=== PATIENT | female | born 1965 | race Caucasian/White ===

== ENCOUNTER 2017-03-31 16:03 | Emergency (ER) | payer OTHER ==
[~2017-03-31] VITALS: Ht 162.6 cm; Wt 100.8 kg
[~2017-03-31 16:03] MED LIST: CALC-451 PO; DEXA4TAB PO; HYDR-3240 PO; IRON1TAB60 PO; MULT-6 PO
[2017-03-31] MEDS ORDERED: SODIUM CHLORIDE 0.9% 1,000 ML IV ONE (16:23)
[2017-03-31] MEDS ORDERED: SODIUM CHLORIDE 0.9% 1,000ML IVBOLUS ONE (16:30)
[2017-03-31] MEDS ORDERED: ONDANSETRON 2MG/ML, 2ML IVPush ONE (16:30)
[2017-03-31] MEDS ORDERED: SODIUM CHLORIDE FLUSH 10ML SYR IVF ONE (16:30)
[2017-03-31] MEDS ORDERED: DIPHENHYDRAMINE 50 MG/ML, 1ML IVPush ONE (16:30)
[2017-03-31 16:49] LABS: HEMATOCRIT 39.6 % (34.6-47.8); HEMOGLOBIN 13.3 g/dL (11.7-16.4); WHITE BLOOD COUNT 13.6 x10^3/uL (3.4-10)
[2017-03-31] MEDS ORDERED: DIPHENHYDRAMINE 50 MG/ML, 1ML ONE (16:59)
[2017-03-31] MEDS ORDERED: ONDANSETRON 2MG/ML, 2ML ONE (16:59)
[2017-03-31 17:01] LABS: BLOOD UREA NITROGEN 14 mg/dL (7-18)
[2017-03-31 17:11] LABS: ASPARTATE AMINO TRANSFERASE 21 U/L (15-37)
[2017-03-31] MEDS ORDERED: PROCHLORPERAZINE 5 MG/ML, 2ML IVPush ONE (17:30)
[2017-03-31] MEDS ORDERED: PROCHLORPERAZINE 5 MG/ML, 2ML ONE (17:48)
[2017-03-31 19:02] VITALS: BP 135/73
== END 2017-03-31 19:04 | disposition home or self-care (01) ==
LOC: ED 18:37
DX: G44.1 Vascular headache, not elsewhere classified (principal)
CPT/HCPCS: 36415; 70450; 71010; 80053; 83605; 85025; 85610; 85730; 87040; 96361; 96374; 96375; 99285; J0780; J1200; J2405; J7030

== ENCOUNTER 2017-08-18 09:51 | Day surgery (SDC) | payer OTHER ==
[~2017-08-18] VITALS: Ht 162.6 cm; Wt 110.0 kg
[2017-08-18] MEDS ORDERED: CYCL-259 PO (10:19)
[2017-08-18] MEDS ORDERED: HYDR-3240 PO ×2 (10:19)
[2017-08-18] MEDS ORDERED: AMLO1TAB92 PO (10:19)
[2017-08-18] MEDS ORDERED: TRAM50TA2 PO (10:19)
[2017-08-18] MEDS ORDERED: PRED20TA PO (10:19)
[2017-08-18 10:50] LABS: BASOPHILS # (AUTO) 0.05 x10^3/uL (0-0.1); BASOPHILS % (AUTO) 1 % (0-1); EOSINOPHILS # (AUTO) 0.03 x10^3/uL (0-0.4); EOSINOPHILS % (AUTO) 1 % (1-7); LYMPHOCYTES # (AUTO) 0.94 x10^3/uL (1-3.4); LYMPHOCYTES % (AUTO) 13 % (22-44); MD NO; MEAN CORPUSCULAR HEMOGLOBIN 29.9 pg (27.0-34.8); MEAN CORPUSCULAR HGB CONC 33.6 g/dL (32.4-35.8); MEAN CORPUSCULAR VOLUME 88.8 fL (80-100); MEAN PLATELET VOLUME 8.8 fL (7.4-10.4); MONOCYTES % (AUTO) 6 % (2-9); NEUTROPHILS # (AUTO) 5.76 x10^3/uL (1.8-6.8); NEUTROPHILS % (AUTO) 80 % (42-75); PLATELET COUNT 269 x10^3/uL (130-400); RED BLOOD COUNT 4.15 x10^6/uL (3.82-5.3); RED CELL DISTRIBUTION WIDTH 14.7 % (9.6-15.2)
[2017-08-18 11:01] LABS: ANION GAP 7 mmol/L (5-15); CALCIUM 8.7 mg/dL (8.5-10.1); CHLORIDE 111 mmol/L (98-107); CREATININE 0.88 mg/dL (0.55-1.02)
[2017-08-18] MEDS ORDERED: LIDOCAINE 2%, 2ML ONE (11:45)
[2017-08-18] MEDS ORDERED: NITROGLYCERIN 5 MG/ML, 10ML ONE (11:45)
[2017-08-18] MEDS ORDERED: DIPHENHYDRAMINE 50 MG/ML, 1ML ONE (11:45)
[2017-08-18] MEDS ORDERED: VERAPAMIL 2.5 MG/ML, 2ML ONE (11:45)
[2017-08-18] MEDS ORDERED: FENTANYL PF 100 MCG/2ML ONE (11:45)
[2017-08-18] MEDS ORDERED: MIDAZOLAM 1 MG/ML, 2ML ONE ×3 (11:45→12:21)
[2017-08-18] MEDS ORDERED: HEPARIN 1,000 UNITS/ML, 10ML ONE (11:46)
== END 2017-08-18 14:39 ==
LOC: CACL 09:51
PROVIDERS: ATTEND Internal Medicine Cardiovascular Disease
DX: I71.2 Thoracic aortic aneurysm, without rupture (principal); I10 Essential (primary) hypertension
CPT/HCPCS: 36415; 80048; 85025; 93458; 93567; 99156; C1769; C1894; J1200; J1644; J2250; J3010; J3490; Q9967

== ENCOUNTER → 2017-09-12 | Outpatient (CLI) | payer OTHER ==
[~2017-09-12] MED LIST changes: +AMLO1TAB92 PO; +CYCL-259 PO; +PRED20TA PO; +TRAM50TA2 PO
== END | disposition home or self-care (01) ==
LOC: CFH 07:37
PROVIDERS: ATTEND Psychiatry & Neurology Neurology
DX: D25.9 Leiomyoma of uterus, unspecified (principal); K40.90 Unilateral inguinal hernia, without obstruction or gangrene, not specified as recurrent; M51.36 Other intervertebral disc degeneration, lumbar region
CPT/HCPCS: 72195

== ENCOUNTER → 2018-03-03 | Outpatient (CLI) | payer OTHER ==
[~2018-03-03] MED LIST changes: +AMLO1CAP12 PO
[2018-03-03 10:30] LABS: BASOPHILS # (AUTO) 0.03 x10^3/uL (0-0.1); BASOPHILS % (AUTO) 0 % (0-1); EOSINOPHILS # (AUTO) 0.03 x10^3/uL (0-0.4); EOSINOPHILS % (AUTO) 0 % (1-7); LYMPHOCYTES # (AUTO) 0.97 x10^3/uL (1-3.4); LYMPHOCYTES % (AUTO) 13 % (22-44); MD NO; MEAN CORPUSCULAR HEMOGLOBIN 25.3 pg (27.0-34.8); MEAN CORPUSCULAR HGB CONC 31.7 g/dL (32.4-35.8); MEAN CORPUSCULAR VOLUME 79.9 fL (80-100); MEAN PLATELET VOLUME 8.5 fL (7.4-10.4); MONOCYTES # (AUTO) 0.45 x10^3/uL (0.2-0.8); MONOCYTES % (AUTO) 6 % (2-9); NEUTROPHILS # (AUTO) 6.05 x10^3/uL (1.8-6.8); NEUTROPHILS % (AUTO) 80 % (42-75); PLATELET COUNT 330 x10^3/uL (130-400); RED BLOOD COUNT 4.42 x10^6/uL (3.82-5.3)
[2018-03-03 10:36] LABS: INTERNATIONAL NORMALIZED RATIO 0.97 (0.93-1.1)
[2018-03-03 10:37] LABS: ALANINE AMINOTRANSFERASE 33 U/L (12-78); ALBUMIN 3.7 g/dL (3.4-5.0); ANION GAP 4 mmol/L (5-15); CALCIUM 8.8 mg/dL (8.5-10.1); CHLORIDE 112 mmol/L (98-107); CREATININE 0.94 mg/dL (0.55-1.02)
[2018-03-03 10:40] LABS: ALKALINE PHOSPHATASE 96 U/L (45-117); BILIRUBIN,TOTAL 0.3 mg/dL (0.2-1.0)
== END | disposition home or self-care (01) ==
LOC: STAR 09:36
PROVIDERS: ATTEND Specialist
DX: Z01.818 Encounter for other preprocedural examination (principal); N85.00 Endometrial hyperplasia, unspecified; R19.07 Generalized intra-abdominal and pelvic swelling, mass and lump
CPT/HCPCS: 36415; 71046; 80053; 85025; 85610; 85730; 93005

== ENCOUNTER 2018-03-09 08:45 | Day surgery (SDC) | payer OTHER ==
[~2018-03-09] VITALS: Ht 162.6 cm; Wt 96.1 kg
[~2018-03-09 08:45] MED LIST changes: +BUPIVACAINE/PF-EPI 0.25% 1:200K ONE; +INDOCYANINE GREEN 25 MG VIAL ONE
[2018-03-09] MEDS ORDERED: MIDAZOLAM 1 MG/ML, 2ML IV PRN (09:00)
[2018-03-09] MEDS ORDERED: OXYcodone 5 MG/5 ML ORAL.SOL UDC PO PRN (09:00)
[2018-03-09] MEDS ORDERED: PROCHLORPERAZINE 5 MG/ML, 2ML IV PRN (09:00)
[2018-03-09] MEDS ORDERED: EPHEDRINE 50 MG/ML, 1ML IVPush PRN (09:00)
[2018-03-09] MEDS ORDERED: LORazepam 2 MG/ML, 1ML IVPush PRN (09:00)
[2018-03-09] MEDS ORDERED: hydrALAzine 20 MG/ML, 1ML IV PRN (09:00)
[2018-03-09] MEDS ORDERED: SCOPOLAMINE PATCH, 1.5MG PATCH.TD72 TD PRN (09:00)
[2018-03-09] MEDS ORDERED: LABETALOL 5MG/ML, 20ML IV PRN (09:00)
[2018-03-09] MEDS ORDERED: ALBUTEROL SULFATE 2.5 MG/3 ML NPPB PRN (09:00)
[2018-03-09] MEDS ORDERED: MEPERIDINE/PF 25MG/0.5ML IVPush PRN (09:00)
[2018-03-09] MEDS ORDERED: MORPHINE SULFATE 4 MG/ML, 1ML IVPush PRN (09:00)
[2018-03-09] MEDS ORDERED: LACTATED RINGERS 1,000 ML IV SCH (09:12)
[2018-03-09 09:29] VITALS: BP 122/79
[2018-03-09] MEDS ORDERED: ACETAMINOPHEN 500 MG TABLET PO ONE (09:30)
[2018-03-09] MEDS ORDERED: GABAPENTIN 300 MG CAPSULE PO ONE (09:30)
[2018-03-09] MEDS ORDERED: ONDANSETRON ODT 8 MG PO ONE (09:30)
[2018-03-09 09:50] LABS: HCG UR SG 1.018 (1.003-1.030)
[2018-03-09] MEDS ORDERED: CEFAZOLIN 1,000 MG ONE ×2 (10:46)
[2018-03-09] MEDS ORDERED: DEXAMETHASONE 4 MG/ML, 1ML ONE ×2 (10:46)
[2018-03-09] MEDS ORDERED: MIDAZOLAM 1 MG/ML, 2ML ONE ×2 (10:46→16:24)
[2018-03-09] MEDS ORDERED: FENTANYL PF 100 MCG/2ML ONE ×3 (10:46→15:48)
[2018-03-09] MEDS ORDERED: PROPOFOL 10 MG/ML, 20ML ONE (10:46)
[2018-03-09] MEDS ORDERED: ROCURONIUM 10MG/ML,5ML ONE (10:47)
[2018-03-09] MEDS ORDERED: LIDOCAINE GEL 2%, 5ML ONE (13:32)
[2018-03-09] MEDS ORDERED: LIDOCAINE 4%, 4 ML SYR/CANN TP ONE (13:32)
[2018-03-09] MEDS ORDERED: SUCCINYLCHOLINE 20 MG/ML, 10ML ONE (13:32)
[2018-03-09] MEDS ORDERED: GLYCOPYRROLATE 0.2MG/1ML, 5ML ONE (15:03)
[2018-03-09] MEDS ORDERED: NEOSTIGMINE 1 MG/ML, 10ML ONE (15:03)
[2018-03-09] MEDS: FENTANYL PF 100 MCG/2ML IV PRN ×3 (15:48→16:15)
[2018-03-09] MEDS: HYDROmorphone 1 MG/ML, 1ML IV PRN ×3 (15:48→16:13)
[2018-03-09] MEDS ORDERED: HYDROmorphone 2 MG/ML, 1ML ONE (15:48)
[2018-03-09] MEDS ORDERED: KETOROLAC 30 MG/1 ML ONE (16:19)
[2018-03-09] MEDS ORDERED: KETOROLAC 30 MG/1 ML IVPush SCH (16:30)
[2018-03-09] MEDS ORDERED: KETOROLAC 30 MG/1 ML IVPush ONE (17:00)
[2018-03-09] MEDS ORDERED: morphine SULFATE 10 MG/ML, 1ML ONE (17:23)
[2018-03-09] MEDS ORDERED: MORPHINE SULFATE 4 MG/ML, 1ML IVPush ONE (17:30)
[2018-03-09] MEDS ORDERED: HYDROcodone/APAP 7.5-325MG/15ML UDC PO ONE (18:00)
== END 2018-03-09 22:10 | disposition home or self-care (01) ==
LOC: OUT 08:45 → 4NOR 20:00 → OUT 22:10
PROVIDERS: ATTEND Specialist
DX: C54.1 Malignant neoplasm of endometrium (principal); D25.0 Submucous leiomyoma of uterus; N92.0 Excessive and frequent menstruation with regular cycle; G43.909 Migraine, unspecified, not intractable, without status migrainosus; I10 Essential (primary) hypertension; Z79.82 Long term (current) use of aspirin; Z98.890 Other specified postprocedural states; Z79.899 Other long term (current) drug therapy; Z72.89 Other problems related to lifestyle; Z98.51 Tubal ligation status; Z85.828 Personal history of other malignant neoplasm of skin
CPT/HCPCS: 36415; 38572; 58570; 74018; 81025; 86850; 86900; 86923; 88307; 88331; J0330; J0690; J1100; J1170; J1885; J2250; J2704; J2710; J3010; J3490; J7120; Q0162; S2900; G0378